=== PATIENT | female | born 1990 | race Hispanic/Latino ===

== ENCOUNTER 2021-03-31 13:19 | Emergency (ER) | payer OTHER ==
[~2021-03-31] VITALS: Ht 167.6 cm; Wt 74.8 kg
[2021-03-31] MEDS ORDERED: MOTRIN200 MG PO (15:48)
[2021-03-31 16:00] VITALS: BP 133/76
== END 2021-03-31 16:01 | disposition home or self-care (01) ==
LOC: FSED 13:25
DX: N93.0 Postcoital and contact bleeding (principal); D25.9 Leiomyoma of uterus, unspecified; Z85.41 Personal history of malignant neoplasm of cervix uteri
CPT/HCPCS: 76857; 80053; 81003; 81025; 85025; 99284